=== PATIENT | male | born 1965 | race Caucasian/White ===

== ENCOUNTER 2017-09-23 14:40 | Emergency (ER) | payer OTHER ==
[2017-09-23 15:00] VITALS: BP 125/68; PULSE 61; RESP 16; TEMP 97.9; O2SAT 95
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
== END 2017-09-23 15:25 | disposition home or self-care (01) ==
LOC: CED 14:40
DX: S06.0X0A Concussion without loss of consciousness, initial encounter (principal); V18.0XXA Pedal cycle driver injured in noncollision transport accident in nontraffic accident, initial encounter; W22.8XXA Striking against or struck by other objects, initial encounter; Y99.8 Other external cause status; Y93.55 Activity, bike riding